=== PATIENT | male | born 1955 | race Caucasian/White ===

== ENCOUNTER → 2018-01-23 06:59 | Outpatient (CLI) | payer OTHER, SELFPAY ==
[2018-01-23 09:55] LABS: Alanine Aminotransferase 41 IU/L (21-72); Albumin 4.3 g/dL (3.5-5.0); Albumin Globulin Ratio 1.4 (1.0-2.8); Alkaline Phosphatase 61 U/L (38-126); Aspartate Aminotransferase 30 IU/L (17-59); BUN Creatinine Ratio 16.4 (6-22); Bilirubin Total 0.7 mg/dL (0.2-1.3); Blood Urea Nitrogen 18 mg/dL (9-20); Calcium 9.2 mg/dL (8.4-10.2); Carbon Dioxide 29 mmol/L (22-32); Chloride 102 mmol/L (98-107); Cholesterol 185 mg/dL (140-199); Estimated Glomerular Filt Rate > 60.0 mL/min (>60); Globulin 3.1 g/dL (1.7-4.1); Glucose 82 mg/dL (80-110); HDL Cholesterol 74 mg/dL (40-60); HEMOLYSIS < 15 (0-50); LDL Cholesterol Calculated 97 mg/dL (<100); Potassium 4.4 mmol/L (3.4-5.1); Sodium 141 mmol/L (137-145); Total Protein 7.4 g/dL (6.3-8.2); Triglycerides 70 mg/dL (35-150)
[2018-01-23 10:30] LABS: Thyroid Stimulating Hormone 1.77 uIU/mL (0.47-4.68)
== END ==
PROVIDERS: Family Provider Internal Medicine; PCP Internal Medicine; Visit Provider Internal Medicine Cardiovascular Disease
DX: E78.5 Hyperlipidemia, unspecified (principal); A60.9 Anogenital herpesviral infection, unspecified; E78.2 Mixed hyperlipidemia
CPT/HCPCS: 36415; 80053; 80061; 84443

== ENCOUNTER → 2019-03-12 07:27 | Outpatient (CLI) | payer OTHER, SELFPAY ==
[2019-03-12 09:00] LABS: Alanine Aminotransferase 30 IU/L (21-72); Albumin 4.5 g/dL (3.5-5.0); Albumin Globulin Ratio 1.7 (1.0-2.8); Alkaline Phosphatase 52 U/L (38-126); Aspartate Aminotransferase 31 IU/L (17-59); Bilirubin Total 0.8 mg/dL (0.2-1.3); Blood Urea Nitrogen 18 mg/dL (9-20); Calcium 9.5 mg/dL (8.4-10.2); Carbon Dioxide 29 mmol/L (22-32); Chloride 104 mmol/L (98-107); Cholesterol 183 mg/dL (140-199); Estimated Glomerular Filt Rate > 60.0 mL/min (>60); Globulin 2.7 g/dL (1.7-4.1); Glucose 88 mg/dL (80-110); HDL Cholesterol 77 mg/dL (40-60); HEMOLYSIS < 15 (0-50); LDL Cholesterol Calculated 92 mg/dL (<100); Potassium 4.8 mmol/L (3.4-5.1); Sodium 139 mmol/L (137-145); Total Protein 7.2 g/dL (6.3-8.2); Triglycerides 72 mg/dL (35-150)
== END ==
PROVIDERS: Family Provider Internal Medicine; PCP Internal Medicine; Visit Provider Internal Medicine Cardiovascular Disease
DX: E78.5 Hyperlipidemia, unspecified (principal); I10 Essential (primary) hypertension
CPT/HCPCS: 36415; 80053; 80061

== ENCOUNTER → 2020-05-27 07:18 | Outpatient (CLI) | payer OTHER, SELFPAY ==
[2020-05-27 09:07] LABS: Add Manual Diff / Slide Review NO; Basophils Absolute Auto 100 /uL (0-100); Basophils Percent Auto 2.1 % (0-2); Eosinophils Absolute Auto 300 /uL (0-450); Eosinophils Percent Auto 6.8 % (2-4); Hematocrit 41.8 % (41-53); Hemoglobin 14.4 g/dL (13.5-17.5); Lymphocytes Absolute Auto 1200 /uL (1100-4500); Lymphocytes Percent Auto 27.9 % (25-40); Mean Corpuscular HGB Conc 34.5 % (30-36); Mean Corpuscular Hemoglobin 31.3 PG (26-34); Mean Corpuscular Volume 90.8 fL (80-100); Monocytes Absolute Auto 500 /uL (0-900); Monocytes Percent Auto 10.8 % (3-14); Neutrophils Absolute Auto 2200 /uL (1500-7000); Neutrophils Percent Auto 52.4 % (50-75); Platelet Count 201 X10^3/uL (150-400); Red Blood Cell Count 4.61 X10^6/uL (4.5-5.9); Red Cell Distribution Width 13.3 % (11.6-14.8); White Blood Cell Count 4.2 X10^3/uL (4.5-11.0)
[2020-05-27 09:24] LABS: Alanine Aminotransferase 30 IU/L (<50); Albumin 4.7 g/dL (3.5-5.0); Albumin Globulin Ratio 1.6 (1.0-2.8); Alkaline Phosphatase 51 U/L (38-126); Aspartate Aminotransferase 37 IU/L (17-59); BUN Creatinine Ratio 17.8 (6-22); Bilirubin Total 0.6 mg/dL (0.2-1.3); Blood Urea Nitrogen 19 mg/dL (9-20); Calcium 9.3 mg/dL (8.4-10.2); Carbon Dioxide 29 mmol/L (22-32); Chloride 104 mmol/L (98-107); Cholesterol 175 mg/dL (140-199); Estimated Glomerular Filt Rate > 60.0 mL/min (>60); Globulin 2.9 g/dL (1.7-4.1); Glucose 89 mg/dL (80-110); HDL Cholesterol 77 mg/dL (40-60); HEMOLYSIS < 15 (0-50); LDL Cholesterol Calculated 81 mg/dL (<100); Potassium 4.2 mmol/L (3.4-5.1); Sodium 139 mmol/L (137-145); Total Protein 7.6 g/dL (6.3-8.2); Triglycerides 83 mg/dL (35-150)
[2020-05-27 09:46] LABS: Prostate Specific Antigen Scrn 1.28 ng/mL (0.1-4.0)
== END ==
PROVIDERS: Family Provider Internal Medicine; PCP Family Medicine; Referring Provider Family Medicine; Visit Provider Family Medicine
DX: E78.5 Hyperlipidemia, unspecified (principal); I10 Essential (primary) hypertension; I25.10 Atherosclerotic heart disease of native coronary artery without angina pectoris; Z12.5 Encounter for screening for malignant neoplasm of prostate
CPT/HCPCS: 36415; 80053; 80061; 85025; G0103

== ENCOUNTER → 2020-11-06 08:28 | Outpatient (CLI) | payer OTHER, SELFPAY ==
[2020-11-06] MEDS: COVID-19 VACC #1, MRNA(MOD) 100 MCG/0.5 ML VIAL IM (08:35)
== END ==
PROVIDERS: Family Provider Internal Medicine; PCP Family Medicine; Visit Provider Internal Medicine
DX: Z23 Encounter for immunization (principal)
CPT/HCPCS: 0011A; 91301

== ENCOUNTER → 2020-12-04 08:10 | Outpatient (CLI) | payer OTHER, SELFPAY ==
[2020-12-04] MEDS: COVID-19 VACC #2, MRNA(MOD) 100 MCG/0.5 ML VIAL IM (08:22)
== END ==
PROVIDERS: Family Provider Internal Medicine; PCP Family Medicine; Visit Provider Internal Medicine
DX: Z23 Encounter for immunization (principal)
CPT/HCPCS: 0012A; 91301

== ENCOUNTER → 2021-08-25 07:17 | Outpatient (CLI) | payer MEDICARE, SELFPAY ==
[2021-08-25 09:09] LABS: Add Manual Diff / Slide Review NO; Basophils Absolute Auto 100 /uL (0-100); Basophils Percent Auto 2.1 % (0-2); Eosinophils Absolute Auto 200 /uL (0-450); Eosinophils Percent Auto 4.7 % (2-4); Hemoglobin 14.6 g/dL (13.5-17.5); Lymphocytes Absolute Auto 1300 /uL (1100-4500); Lymphocytes Percent Auto 32.7 % (25-40); Mean Corpuscular Hemoglobin 31.3 PG (26-34); Monocytes Absolute Auto 500 /uL (0-900); Monocytes Percent Auto 11.8 % (3-14); Neutrophils Absolute Auto 2000 /uL (1500-7000); Neutrophils Percent Auto 48.7 % (50-75); Platelet Count 209 X10^3/uL (150-400); Red Blood Cell Count 4.68 X10^6/uL (4.5-5.9); Red Cell Distribution Width 13.7 % (11.6-14.8)
[2021-08-25 09:32] LABS: Alanine Aminotransferase 28 IU/L (<50); Albumin 4.5 g/dL (3.5-5.0); Albumin Globulin Ratio 1.8 (1.0-2.8); Alkaline Phosphatase 47 U/L (38-126); Aspartate Aminotransferase 33 IU/L (17-59); Blood Urea Nitrogen 17 mg/dL (9-20); Calcium 9.3 mg/dL (8.4-10.2); Carbon Dioxide 27 mmol/L (22-32); Chloride 106 mmol/L (98-107); Cholesterol 170 mg/dL (140-199); Estimated Glomerular Filt Rate > 60.0 mL/min (>60); Globulin 2.5 g/dL (1.7-4.1); Glucose 93 mg/dL (80-110); HDL Cholesterol 88 mg/dL (40-60); HEMOLYSIS < 15 (0-50); LDL Cholesterol Calculated 71 mg/dL (<100); Potassium 4.5 mmol/L (3.4-5.1); Sodium 139 mmol/L (137-145); Triglycerides 54 mg/dL (35-150)
[2021-08-25 10:00] LABS: Prostate Specific Antigen Scrn 1.38 ng/mL (0.1-4.0)
== END ==
PROVIDERS: Family Provider Internal Medicine; PCP Family Medicine; Referring Provider Internal Medicine Cardiovascular Disease; Visit Provider Internal Medicine Cardiovascular Disease
DX: E78.2 Mixed hyperlipidemia (principal); E78.5 Hyperlipidemia, unspecified; Z12.5 Encounter for screening for malignant neoplasm of prostate; I10 Essential (primary) hypertension; D70.9 Neutropenia, unspecified
CPT/HCPCS: 36415; 80053; 80061; 85025; G0103

== ENCOUNTER → 2022-07-23 13:24 | Outpatient (CLI) | payer MEDICARE, SELFPAY ==
--- NOTE | 2022-07-23 13:25 | DI.RAD.S_ITS ---
PROCEDURE: XR LUMBAR SPINE MIN 4V INDICATIONS: BACK PAIN TECHNIQUE: 5 views of the lumbar spine were acquired, including bilateral oblique views. COMPARISON: None. FINDINGS: Bones: 5 nonrib-bearing vertebrae are present. There is normal bony alignment it except for slight anterolisthesis of L4 on L5 associated with moderate degenerative disc disease at this level and moderately severe facet osteoarthritis bilaterally. At L5-S1 there is no significant subluxation but there is severe degenerative disc height reduction and moderately severe bilateral facet osteoarthritis.. No vertebral body compression fractures. No suspicious bony lesions. Soft tissues: Overlying bowel gas pattern is normal. No suspicious soft tissue calcifications. Oblique images: No pars defects. IMPRESSION: Moderate degenerative disc disease L4-L5 with associated mild anterolisthesis of L4 on L5, secondary to this degenerative change and also moderately severe bilateral facet osteoarthritis. At the L5-S1 level there is near severe degenerative changes with significant disc height reduction and moderately severe facet osteoarthritis. Spinal and foraminal stenosis almost certainly would be present at this level and may be present at L4-L5. No compression fracture found. Dictated by: Pj Paul M.D. on 07/23/2022 at 13:46 Approved by: Pj Paul M.D. on 07/23/2022 at 13:49
== END ==
PROVIDERS: Family Provider Internal Medicine; PCP Family Medicine; Referring Provider Physical Medicine & Rehabilitation; Visit Provider Physical Medicine & Rehabilitation
DX: M51.36 Other intervertebral disc degeneration, lumbar region (principal); M43.16 Spondylolisthesis, lumbar region; M47.816 Spondylosis without myelopathy or radiculopathy, lumbar region; M47.817 Spondylosis without myelopathy or radiculopathy, lumbosacral region; M48.07 Spinal stenosis, lumbosacral region; M54.9 Dorsalgia, unspecified; G89.29 Other chronic pain
CPT/HCPCS: 72110

== ENCOUNTER → 2022-08-06 11:48 | Outpatient (CLI) | payer MEDICARE, SELFPAY ==
--- NOTE | 2022-08-06 11:49 | DI.MRI.S_ITS ---
PROCEDURE: MR LUMBAR SPINE WO CON INDICATIONS: Lumbar facet arthropathy TECHNIQUE: Noncontrast sagittal T1 spin echo and T2 fast echo, sagittal STIR, and T2 fast spin echo through the lumbar spine. In cases with scoliosis, additional coronal T2 fast spin echo may be performed. COMPARISON: [facility], CR, XR LUMBAR SPINE MIN 4V, 07/23/2022, 13:26. FINDINGS: Image quality: Excellent. Alignment and Curvature: There is minimal 2 mm grade 1 anterolisthesis of L5 on S1. Mild grade 1 anterolisthesis of L4 on L5 measures 3 mm. No spondylolysis. Bone Marrow: Mild Modic type 1 degenerative endplate changes are seen adjacent to the L5-S1 disc space. Modic type 2 changes are seen at the L1-2 disc space. Marrow is of normal overall signal. No acute vertebral body compression fractures. Spinal Cord: Conus medullaris terminates at the L1-2 disc space level. Visualized cord demonstrates normal signal and size. Paraspinous Soft Tissues: No paravertebral masses. T12-L1: No significant disc bulging, spinal canal stenosis, or neural foraminal narrowing. L1-L2: Disc desiccation and mild loss of disc space height with circumferential disc bulging. Findings result in mild bilateral neural foraminal narrowing without significant spinal canal stenosis. L2-L3: Disc desiccation and circumferential disc bulging with superimposed small right paracentral disc extrusion measuring approximately 8 x 8 x 4 mm. There is minimal extension along the posterior L2 vertebra. Findings result in partial effacement of the right lateral recess with disc material abutting the traversing right L3 nerve root. There is mild narrowing of the spinal canal and mild bilateral neural foraminal narrowing. L3-L4: Disc desiccation and mild circumferential disc bulging as well as mild bilateral facet hypertrophy. Findings result in mild narrowing of the spinal canal and [id number] bilateral neural foraminal narrowing. L4-L5: Grade 1 anterolisthesis of L4 on L5 with uncovering of the disc it and superimposed circumferential disc bulging as well as moderate bilateral facet hypertrophy and buckling of the ligamentum flavum. Findings result in moderate to severe narrowing of the central spinal canal and [id number] bilateral neural foraminal narrowing. L5-S1: Disc desiccation and loss of disc space height with grade 1 retrolisthesis of L5 on S1 as well as mild bilateral facet hypertrophy. Findings result in moderate to severe right and moderate left neural foraminal narrowing without significant spinal canal stenosis. IMPRESSION: 1. At L4-5, degenerative changes and grade 1 anterolisthesis result in moderate to high-grade narrowing of the spinal canal and mild to moderate neural foraminal narrowing. 2. At L5-S1, degenerative changes and grade 1 retrolisthesis result in moderate to severe right neural foraminal narrowing and moderate left neural foraminal narrowing without significant spinal canal stenosis. 3. At L2-3, a small right paracentral disc extrusion abuts the traversing right L3 nerve root in the right lateral recess without definite impingement. No high-grade spinal canal stenosis or neural foraminal narrowing at this level. 4. Additional mild and moderate degenerative disc disease and facet hypertrophy as described in detail in the body of the report. Approved by: José Gill M.D. on 08/06/2022 at 13:48
== END ==
PROVIDERS: Family Provider Internal Medicine; PCP Family Medicine; Referring Provider Physical Medicine & Rehabilitation; Visit Provider Physical Medicine & Rehabilitation
DX: M51.16 Intervertebral disc disorders with radiculopathy, lumbar region; M47.26 Other spondylosis with radiculopathy, lumbar region; M47.27 Other spondylosis with radiculopathy, lumbosacral region; M43.16 Spondylolisthesis, lumbar region; M43.17 Spondylolisthesis, lumbosacral region; M53.3 Sacrococcygeal disorders, not elsewhere classified
CPT/HCPCS: 72148

== ENCOUNTER 2022-08-31 08:08 | Outpatient (CLI) | payer MEDICARE, SELFPAY ==
[2022-08-31] VITALS (9 sets, daily range): BP systolic 127–143; BP diastolic 80–92; PULSE 60–71; RESP 12–18; TEMP 36.2; O2SAT 99–100
--- NOTE | 2022-08-31 08:08 | DI.RAD.S_ITS ---
PROCEDURE: PAIN L/SI FACET INJ/BLK 1STL INDICATIONS: SPONDYLOSIS COMPARISON: [facility], CR, XR LUMBAR SPINE MIN 4V, 07/23/2022, 13:26. [facility], MR, MR LUMBAR SPINE WO CON, 08/06/2022, 12:03. FINDINGS: Fluoroscopic spot filming was performed to verify placement of spinal needles on the left at the L4-L5 and L5-S1 levels, as labeled on the films. Appropriate location of the needle tips was confirmed by injection of iodinated contrast. IMPRESSION: Intraprocedural examination demonstrating appropriate positions of the needles. Dictated by: Rene Taylor M.D. on 08/31/2022 at 10:49 Approved by: Rene Taylor M.D. on 08/31/2022 at 10:50
[2022-08-31] MEDS: MIDAZOLAM 2 MG/2 ML VIAL IV (09:33)
[2022-08-31] MEDS: IOPAMIDOL 15 ML VIAL 3 ML INJ (09:38)
[2022-08-31] MEDS: BETAMETHASONE 30 MG/5 ML MDV 12 MG INJ (09:38)
[2022-08-31] MEDS: BUPIVACAINE 0.5% MDV 2 ML INJ (09:39)
--- NOTE | 2022-08-31 09:49 | P.PCN_ITS ---
Date/Time/Diagnoses Date of procedure: 08/31/22 Time of procedure: 09:49 Pre-procedure diagnosis: 1. FACET ARTHROPATHY, 2. AXIAL LBP, 3. MULTILEVEL DDD Post-procedure diagnosis: same Procedure Notes Procedure: 1. FLUOROSCOPICALLY GUIDED CONTRAST CONTROLLED FACET JOINT INJECTIONS LEFT L4/5, L5/S1 Indications: Nura is referred by Dr. Francis for treatment of Axial LBP Physician: Luis Bradley Total Fluoroscopy time (seconds): 7 Total sedation minutes: 9 Complications: none Procedure in detail & Post-procedure care: FINDINGS Multilevel Facet Arthropathy with Clinically significant axial LBP DESCRIPTION OF PROCEDURE Fluoroscopically guided, contrast-controlled left L4/5, L5/S1 facet joint injections. Following review of allergy and review of potential side effects and complications, including, but not necessarily limited to, infection, allergic reaction, local tissue breakdown, stroke, temporary or permanent nerve injury, paralysis, and possible , the patient indicated that the patient understood and agreed to proceed. An informed consent document was signed by the patient, witnessed by a nurse, and placed in the patient's chart. Additionally, other treatment options including medications, modalities, and physical therapy were reviewed with the patient. After review of previous anaesthesic history and IV conscious sedation the patient was deemed safe to proceed with today?s procedure with IV conscious sedation as ASA class II designation. Safety time-out was performed to confirm patient ID, procedure to be performed and site of procedure. IV sedation was accomplished with a combination of 2mg of Versed was administered by the RN after DO order, titrated to patient comfort during the course of the procedure while the patient remained responsive to all verbal commands. In the prone position, following sterile prep and drape of the lumbar region, the posterior aspect of the left L4/5, L5/S1 facet joints were identified fluoroscopically. The skin was anesthetized via a 25-gauge 1.5-inch needle with 1% lidocaine solution into the corresponding facet joints. At this point, a 22- gauge 3.5-inch spinal needle was atraumatically introduced and advanced under fluoroscopic guidance into the corresponding facet joints. Following negative aspiration, injections of approximately 0.2-cc of Isovue 200 confirmed interarticular placement without vascular uptake. Radiological data, including multiple fluoroscopic views of the lumbosacral spine, reveal a spinal needle at the left L4/5, L5/S1 facet joints. Subsequent views show flow of contrast material both superiorly and inferiorly within the joint space without vascular or intrathecal uptake. At this point, a total of 0.5 cc including a mixture of 0.25cc Marcaine and 0.25cc betamethasone was injected without complication into each of the corresponding facet joints. The procedure tolerated the procedure well without signs or symptoms of complications prior to transfer to the recovery area continued monitoring without incident. The patient was then transferred to the recovery area where they were observed for an appropriate period of time after the injection. The patient reported a VAS score of 7 prior to the procedure and a post-procedure VAS of 0. POST OP INSTRUCTIONS The patient was provided a Pain Log to continue to record their response to the target-specific procedure prior to follow-up visit with their referring physician. Additionally, specific post-injection care instructions and a contact number to our office were provided if concerns arise regarding possible complications associated with the procedure are suspected.
== END 2022-08-31 10:07 | disposition home or self-care (01) ==
PROVIDERS: Family Provider Internal Medicine; PCP Family Medicine; Referring Provider Physical Medicine & Rehabilitation; Visit Provider Physical Medicine & Rehabilitation
DX: M47.816 Spondylosis without myelopathy or radiculopathy, lumbar region (principal); M47.817 Spondylosis without myelopathy or radiculopathy, lumbosacral region; M51.36 Other intervertebral disc degeneration, lumbar region; M51.37 Other intervertebral disc degeneration, lumbosacral region
CPT/HCPCS: 64493; 64494; J0702; J2250

== ENCOUNTER → 2022-09-07 07:16 | Outpatient (CLI) | payer MEDICARE, SELFPAY ==
[2022-09-07 07:58] LABS: Alanine Aminotransferase 35 IU/L (<50); Albumin 4.2 g/dL (3.5-5.0); Albumin Globulin Ratio 1.6 (1.0-2.8); Alkaline Phosphatase 45 U/L (38-126); Aspartate Aminotransferase 28 IU/L (17-59); BUN Creatinine Ratio 13.9 (6-22); Blood Urea Nitrogen 16 mg/dL (9-20); Calcium 8.8 mg/dL (8.4-10.2); Carbon Dioxide 29 mmol/L (22-32); Chloride 103 mmol/L (98-107); Cholesterol 171 mg/dL (140-199); Estimated Glomerular Filt Rate > 60 mL/min (>60); Globulin 2.6 g/dL (1.7-4.1); Glucose 88 mg/dL (80-110); HDL Cholesterol 76 mg/dL (40-60); HEMOLYSIS < 15 (0-50); LDL Cholesterol Calculated 82 mg/dL (<100); Potassium 4.4 mmol/L (3.4-5.1); Sodium 138 mmol/L (137-145); Total Protein 6.8 g/dL (6.3-8.2); Triglycerides 66 mg/dL (35-150)
== END ==
PROVIDERS: Family Provider Internal Medicine; PCP Family Medicine; Referring Provider Family Medicine; Visit Provider Family Medicine
DX: I10 Essential (primary) hypertension (principal); E78.5 Hyperlipidemia, unspecified
CPT/HCPCS: 36415; 80053; 80061

== ENCOUNTER 2022-12-14 13:26 | Outpatient (CLI) | payer MEDICARE, SELFPAY ==
[2022-12-14] VITALS (8 sets, daily range): BP systolic 114–140; BP diastolic 76–83; PULSE 68–78; RESP 12–20; TEMP 36.6; O2SAT 98–100
--- NOTE | 2022-12-14 13:28 | DI.RAD.S_ITS ---
PROCEDURE: PAIN L/SI FACET INJ/BLK 1STL INDICATIONS: SPONDYLOSIS COMPARISON: [facility], , PAIN L/SI FACET INJ/BLK 1STL, 08/31/2022, 10:37. FINDINGS: Fluoroscopic spot filming was performed to verify placement of spinal needles at the left L4, L5 and S1 peripedicle/periforaminal level(s), as labeled on the films. Appropriate location(s) of the needle tip(s) was confirmed by injection of iodinated contrast. IMPRESSION: Access needles adjacent to the left L4, L5 and S1 pedicles for medial branch block. Dictated by: Jayshree Hilton MD, PhD on 12/14/2022 at 15:48 Approved by: Jayshree Hilton MD, PhD on 12/14/2022 at 15:49
[2022-12-14] MEDS: MIDAZOLAM 2 MG/2 ML VIAL IV (14:25)
[2022-12-14] MEDS: BUPIVACAINE 0.5% (PF) 10 ML VIAL 2 ML INJ (14:28)
[2022-12-14] MEDS: IOPAMIDOL 15 ML VIAL 3 ML INJ (14:28)
[2022-12-14] MEDS: LIDOCAINE 1% 20 ML 10 ML INJ (14:29)
--- NOTE | 2022-12-14 14:35 | P.PCN_ITS ---
Date/Time/Diagnoses Date of procedure: 12/14/22 Time of procedure: 14:35 Pre-procedure diagnosis: 1. FACET ARTHROPATHY Post-procedure diagnosis: same Procedure Notes Procedure: 1. Left L4, L5 and S1 MB BLOCKS LA Indications: Nura is referred by Dr. Francis for treatment of Left Axial LBP. Physician: Luis Bradley Total Fluoroscopy time (seconds): 6 Total sedation minutes: 7 Complications: none Procedure in detail & Post-procedure care: DESCRIPTION OF PROCEDURE Fluoroscopically guided, contrast-controlled left L4, L5 and S1 medial branch blocks with 0.5cc of 0.5% Marcaine. Following review of allergy and review of potential side effects and complications, including, but not necessarily limited to, infection, allergic reaction, local tissue breakdown, nerve injury, paralysis, stroke and possible d eath, the patient indicated that the patient understood and agreed to proceed. An informed consent document was signed by the patient, witnessed by a nurse, and placed in the patient's chart. After review of previous anaesthesic history and IV conscious sedation the patient was deemed safe to proceed with today?s procedure with IV conscious sedation as ASA class II designation. Safety time-out was performed to confirm patient ID, procedure to be performed and site of procedure. IV sedation was accomplished with a combination of 2mg of Versed was administered by the RN after DO order, titrated to patient comfort during the course of the procedure while the patient remained responsive to all verbal commands. In the prone position, following sterile prep and drape of the lumbar region, the left L4, L5 and S1 anatomical location of the medial branch of the dorsal ramus was identified fluoroscopically. Subsequently an anesthetic skin wheal using 1% lidocaine solution was initiated at each of the anatomical spots. Subsequently then a 22-gauge 3.5-inch spinal needle was atraumatically introduced and advanced under fluoroscopic guidance at each of the corresponding sites at the left L4, L5 and S1 MB. After negative aspiration, 0.2cc of Isovue 200 was injected, confirming placement without vascular or intrathecal uptake. Subsequently then 0.5cc of 0.5% Marcaine solution was injected at each of the corresponding sites at the left L4, L5 and S1 medial branch locations. The patient tolerated the procedure well without signs or symptoms of complications. The patient tolerated the procedure well without signs or symptoms of complications prior to transfer to the recovery area continued monitoring without incident. Post-procedure, the patient was monitored initiating provocative activities to measure the amount of relief from block of the facetogenic pain. The patient reported a VAS of 7 prior to the procedure and a post-procedure VAS of 1. It has been a pleasure to assist in the diagnostic and therapeutic care of your patient. POST OP INSTRUCTIONS The patient was provided with a Pain Log to complete over the next several hours and subsequent days prior to the patient's follow up with the ordering physician. If the patient has bindery technician relief to the solution applied, then they may be a candidate for medial branch rhizotomy. The patient is aware, was provided, once again, with a Pain Log and will follow up with the referring physician for review and clinical correlation.
== END 2022-12-14 15:02 | disposition home or self-care (01) ==
PROVIDERS: Family Provider Internal Medicine; PCP Family Medicine; Referring Provider Physical Medicine & Rehabilitation; Visit Provider Physical Medicine & Rehabilitation
DX: M47.816 Spondylosis without myelopathy or radiculopathy, lumbar region (principal); M47.817 Spondylosis without myelopathy or radiculopathy, lumbosacral region
CPT/HCPCS: 64493; 64494; 99152; J2250

== ENCOUNTER 2023-01-25 10:41 | Outpatient (CLI) | payer MEDICARE, SELFPAY ==
[2023-01-25] VITALS (9 sets, daily range): BP systolic 127–136; BP diastolic 70–84; PULSE 61–73; RESP 12–20; TEMP 36.4; O2SAT 97–100
--- NOTE | 2023-01-25 10:42 | DI.RAD.S_ITS ---
PROCEDURE: PAIN L/S MED/LAT N RFA INDICATIONS: SPONDYLOSIS COMPARISON: [facility], XA, PAIN L/SI FACET INJ/BLK 1STL, 12/14/2022, 14:27. [facility], XA, PAIN L/SI FACET INJ/BLK 1STL, 08/31/2022, 10:37. FINDINGS: Fluoroscopic spot filming was performed to verify placement of spinal needles on the left at the L4, L5, and S1 levels, as labeled on the films. IMPRESSION: Images during rhizotomy within normal limits. Dictated by: Rene Taylor M.D. on 01/25/2023 at 15:48 Approved by: Rene Taylor M.D. on 01/25/2023 at 15:49
[2023-01-25] MEDS: MIDAZOLAM 2 MG/2 ML VIAL IV (12:10)
[2023-01-25] MEDS: LIDOCAINE 1% 20 ML 5 ML INJ (12:22)
[2023-01-25] MEDS: BUPIVACAINE 0.5% (PF) 10 ML VIAL 5 ML INJ (12:22)
--- NOTE | 2023-01-25 12:37 | P.PCN_ITS ---
Date/Time/Diagnoses Date of procedure: 01/25/23 Time of procedure: 12:37 Pre-procedure diagnosis: 1. RECALCITRANT FACET ARTHROPATHY Post-procedure diagnosis: same Procedure Notes Procedure: 1. LEFT L4 AND L5 MEDIAL BRANCH RADIOFREQUENCY NEUROTOMY AND LEFT S1 DORSAL RAMUS RADIOFREQUENCY NEUROTOMY, Indications: Nura is referred by Dr. Francis for treatment of facet arthropathy. Physician: Luis Bradley Total Fluoroscopy time (seconds): 13 Total sedation minutes: 23 Complications: none Procedure in detail & Post-procedure care: DESCRIPTION OF PROCEDURE Left L4 and L5 medial branch radiofrequency neurotomy and left S1 dorsal ramus branch radiofrequency neurotomy under fluoroscopy with conscious sedation. The patient is well known to this clinic having undergone previous facet injections with good but temporary relief. The patient has experienced appropriate, concordant relief with previous facet and median branch blocks but the patient's pain has been recalcitrant to further conservative measures. Therefore, based upon the patient's relief and persistent symptoms, the patient is considered an appropriate candidate for facet rhizotomy. All of the patient's questions regarding the risks versus benefits of the procedure, including, but not limited to, bleeding, infection, temporary as well as lasting nerve injury, paralysis, stroke, and , as well treatment alternatives were answered to satisfaction. After obtaining informed consent, denial of pertinent drug allergies, as well as being made aware of the potential risks of bleeding, infection, spinal cord trauma, paralysis, temporary and permanent nerve damage, seizure, stroke, and possible , the patient was brought to the fluoroscopy suite and positioned prone on the fluoroscopy table. The lumbar region was prepped with Betadine and covered with a fenestrated drape in the usual sterile fashion. Appropriate monitors applied including pulse oximeter, pulse, and blood pressure for regular monitoring throughout the procedure. IV sedation was accomplished with a combination of 2mg of Versed titrated to patient comfort during the course of the procedure while the patient remained responsive to all verbal commands. After local infiltration using 1% lidocaine, under fluoroscopic guidance, a 10- cm RF insulated needle with a 10-mm active tip was positioned parallel to the junction of the left sacral ala and the superior articulating process where the S1 dorsal ramus resides. Needle placement was confirmed with sensory stimulation at 50 Hz, with motor stimulation of .5v on the left which produced local stimulation without radicular component. The stimulation was then increased to 2v with, once again, only local multifidus stimulation without radicular component. This was then followed by two discreet lesions performed at 80 degrees Celsius for 90 seconds each. The needle was then removed and the identical procedure was performed along the length of the left L5 medial branch with motor stimulation at .7v on the left. The identical procedure was once again performed along the length of the left L4 medial branch with motor stimulation of .5v on the left. The patient tolerated the procedure well without signs or symptoms of complications prior to transfer to the recovery area continued monitoring without incident. The patient was then transferred to the recovery area where they were observed for an appropriate period of time after the injection. The patient was then transferred to the recovery area where they were observed for an appropriate period of time after the injection. The patient reported a VAS score of 9 prior to the procedure and a post- procedure VAS of 0. POST OP INSTRUCTIONS The patient was provided a Pain Log to continue to record the patient's response to the target-specific procedure prior to the patient's follow-up visit with the referring physician. Additionally, specific post-injection care instructions and a contact number to our office were provided if concerns arise regarding possible complications associated with the procedure are suspected.
== END 2023-01-25 12:46 | disposition home or self-care (01) ==
LOC: RAD 10:42
PROVIDERS: Family Provider Internal Medicine; PCP Family Medicine; Referring Provider Physical Medicine & Rehabilitation; Visit Provider Physical Medicine & Rehabilitation
DX: M47.816 Spondylosis without myelopathy or radiculopathy, lumbar region (principal); M47.817 Spondylosis without myelopathy or radiculopathy, lumbosacral region
CPT/HCPCS: 64635; 64636; 99152; 99153; J2250

== ENCOUNTER → 2023-04-24 09:45 | Outpatient (CLI) | payer MEDICARE, SELFPAY ==
--- NOTE | 2023-04-24 09:46 | DI.RAD.S_ITS ---
PROCEDURE: XR ELBOW LT MIN 3V INDICATIONS: left elbow pain TECHNIQUE: 3 views of the elbow were acquired. COMPARISON: None. FINDINGS: Bones: Bony step-off involves the lateral aspect of the radial. Small well corticated ossified structure adjacent to the lateral epicondyle of the distal humerus. No suspicious bony lesions. Soft tissues: Small elbow joint effusion. No suspicious soft tissue calcifications. IMPRESSION: 1. Findings suggestive of a radial head fracture with small elbow joint effusion. Dictated by: Lacey Pan M.D. on 04/24/2023 at 10:16 Approved by: Lacey Pan M.D. on 04/24/2023 at 10:17
== END ==
PROVIDERS: Family Provider Internal Medicine; PCP Family Medicine; Referring Provider Physician Assistant; Visit Provider Physician Assistant
DX: M25.522 Pain in left elbow (principal); M25.422 Effusion, left elbow
CPT/HCPCS: 73080

== ENCOUNTER → 2023-09-03 07:55 | Outpatient (CLI) | payer MEDICARE, SELFPAY ==
[2023-09-03 09:11] LABS: Aspartate Aminotransferase 29 IU/L (17-59); BUN Creatinine Ratio 16.2 (6-22); Blood Urea Nitrogen 18 mg/dL (9-20); Calcium 9.7 mg/dL (8.4-10.2); Carbon Dioxide 28 mmol/L (22-32); Chloride 102 mmol/L (98-107); Cholesterol 176 mg/dL (140-199); Estimated Glomerular Filt Rate > 60 mL/min (>60); Glucose 92 mg/dL (80-110); HDL Cholesterol 78 mg/dL (40-60); HEMOLYSIS < 15 (0-50); LDL Cholesterol Calculated 86 mg/dL (<100); Potassium 4.6 mmol/L (3.4-5.1); Sodium 136 mmol/L (137-145); Triglycerides 62 mg/dL (35-150)
== END ==
PROVIDERS: Family Provider Internal Medicine; PCP Internal Medicine; Referring Provider Internal Medicine; Visit Provider Internal Medicine
DX: E78.2 Mixed hyperlipidemia (principal); N40.1 Benign prostatic hyperplasia with lower urinary tract symptoms; I25.10 Atherosclerotic heart disease of native coronary artery without angina pectoris; N13.8 Other obstructive and reflux uropathy
CPT/HCPCS: 36415; 80048; 80061; 84153; 84450

== ENCOUNTER 2023-11-03 13:13 | Day surgery (SDC) | payer MEDICARE, SELFPAY ==
[2023-11-03 13:29] VITALS: BP 158/92; PULSE 75; RESP 16; TEMP 36.3; O2SAT 100
--- NOTE | 2023-11-03 14:26 | PM.HP.1 ---
History of Present Illness History of Present Illness Date Patient Seen: 11/03/23 Time Patient Seen: 14:26 Chief complaint: Colonoscopy Narrative: Nura is a 68 year old man with a history of polyps as well as a prolapsing internal hemorrhoid. See office note from August for more details. [facility] Medical History Rectal pain History of colonic polyps BPH w urinary obs/LUTS HSV-2 (herpes simplex virus 2) infection Mixed hyperlipidemia Sacral dysfunction Facet arthropathy, lumbar Lumbar radiculopathy Raynauds disease CAD (coronary artery disease) Anxiety and depression Essential hypertension Chronic back pain Surgical History Status post wisdom tooth extraction Status post tonsillectomy Status post nasal surgery Status post laminectomy Family History Father CAD (coronary artery disease) Mother Hypertension Social History marital status: details: , grown children, retired personal fitness trainer number of children: 3 household members: spouse education level: high school occupational status: other (retired from the [employer]) Smoking Status: Never smoker alcohol intake: current substance use type: does not use Meds Home Medications and Allergies Home Medications Medication Instructions Recorded Confirmed Type alprazolam 0.25 mg tablet 0.25 mg PO BID PRN anxiety #20 tabs 05/17/18 11/03/23 Rx atorvastatin 20 mg tablet 20 mg PO BEDTIME #90 tabs 07/26/23 11/03/23 Rx celecoxib 200 mg capsule (Celebrex) 200 mg PO DAILY PRN pain #90 caps 07/26/23 11/03/23 Rx losartan 50 mg tablet 50 mg PO DAILY #90 tabs 07/26/23 11/03/23 Rx valacyclovir 500 mg tablet 500 mg PO TID PRN herpes #30 tabs 07/26/23 08/17/23 Rx peg 3350-electrolytes 236 240 ml PO Q10M #4,000 mL 10/03/23 Rx gram-22.74 gram-6.74 gram-5.86 gram solution (Golytely) Allergies Allergy/AdvReac Type Severity Reaction Status Date / Time No Known Drug Allergies Allergy Verified 11/03/23 13:26 Exam Vital Signs (past 8 hours): - 11/03/23 13:29 Temperature 97.4 F L Pulse Rate 75 Respiratory Rate 16 Blood Pressure 158/92 H Pulse Oximetry 100 Oxygen Delivery Method Room Air Oxygen Delivery Method Room Air Const General: No acute distress Resp Effort & Inspection: normal respiratory effort Assessment & Plan Assessment and plan (1) History of colonic polyps: Status: Acute (2) Internal hemorrhoid: Status: Acute Plan We reviewed the risks and benefits of colonoscopy for a history of polyps and rubber band ligation of internal hemorrhoids and he would like to proceed.
--- NOTE | 2023-11-03 15:44 | PM.OP.COLON ---
Operative Date/Time/Diagnoses Date of procedure: 11/03/23 Time of procedure: 15:44 Pre-op diagnosis: History of colon polyps and internal hemorrhoids Post-op diagnosis: same Procedure & Clinicians Study performed: Colonoscopy Rubber-band ligation of internal hemorrhoids Same procedure as scheduled: Yes Surgeon: Meek Giles Procedure Notes Procedure in detail: Surgeon: Meek Giles MD Anesthesia: Ashley Garcia CRNA Procedure: The patient was brought to the endoscopy suite, placed in left lateral decubitus position. The patient was connected to monitoring devices. A time-out was performed. Sedation was administered. Once the patient was adequately sedated, a digital rectal exam was performed and was normal. The scope was then inserted and advanced to the cecum where the appendiceal orifice was identified and photographed. The scope was then slowly withdrawn over greater than 6 minutes. The mucosa was thoroughly inspected. No polyps or other abnormalities were noted. Sigmoid colon diverticulosis was noted. The scope was retroflexed in the rectum. Internal hemorrhoids were noted. The scope was straightened and removed. Next we performed rubber-band ligation of internal hemorrhoidal columns in the right lateral and left lateral position. The patient was awakened and brought to recovery. Scope withdrawal time: 6 minutes Sedation time: 15 minutes EBL: 5 mL Findings: Sigmoid colon diverticulosis and internal hemorrhoids Post-procedure Recommendations: Colonoscopy in 10 years Disposition: PACU
[2023-11-03 15:45] VITALS: BP 121/90; PULSE 78; RESP 18; TEMP 36.5; O2SAT 96
[2023-11-03 15:50] VITALS: BP 120/81; PULSE 77; RESP 18; O2SAT 94
[2023-11-03 15:56] VITALS: BP 129/89; PULSE 70; RESP 16; TEMP 36.6; O2SAT 95
[2023-11-03 16:01] VITALS: BP 139/89; PULSE 70; RESP 16; O2SAT 99
== END 2023-11-03 16:12 | disposition home or self-care (01) ==
PROVIDERS: Family Provider Internal Medicine; PCP Internal Medicine; Referring Provider Surgery; Visit Provider Surgery
PROC: 0DJD8ZZ Inspection of Lower Intestinal Tract, Via Natural or Artificial Opening Endoscopic (ICD-10-PCS; CPT 45378; principal; 2023-11-03 14:15)
DX: Z12.11 Encounter for screening for malignant neoplasm of colon (principal); Z86.010 Personal history of colon polyps; K64.8 Other hemorrhoids; K57.30 Diverticulosis of large intestine without perforation or abscess without bleeding
CPT/HCPCS: 46221; G0105; J2704

== ENCOUNTER → 2023-11-24 10:07 | Outpatient (CLI) | payer MEDICARE, SELFPAY ==
--- NOTE | 2023-11-24 10:08 | DI.RAD.S_ITS ---
PROCEDURE: XR LUMBAR SPINE MIN 4V INDICATIONS: BACK PAIN TECHNIQUE: 5 views of the lumbar spine were acquired, including bilateral oblique views. COMPARISON: Located [facility], , XR LUMBAR SPINE MIN 4V, 07/23/2022, 13:26. FINDINGS: Bones: 5 nonrib-bearing vertebrae are present. There is normal bony alignment. No vertebral body compression fractures. No suspicious bony lesions. Intervertebral disc space narrowing and osteophytosis is present at L5-S1. Trace anterolisthesis at L4-5 is redemonstrated. Soft tissues: Overlying bowel gas pattern is normal. No suspicious soft tissue calcifications. Oblique images: No pars defects. IMPRESSION: Mild degenerative change. Stable anterolisthesis at L4-5. No spondylolysis. Dictated by: Kaylee Conner M.D. on 11/24/2023 at 10:56 Approved by: Kaylee Conner M.D. on 11/24/2023 at 10:58
== END ==
PROVIDERS: Family Provider Internal Medicine; PCP Internal Medicine; Referring Provider Physical Medicine & Rehabilitation; Visit Provider Physical Medicine & Rehabilitation
DX: M47.816 Spondylosis without myelopathy or radiculopathy, lumbar region (principal); G89.29 Other chronic pain; M54.50 Low back pain, unspecified
CPT/HCPCS: 72110

== ENCOUNTER 2024-01-10 09:47 | Outpatient (CLI) | payer MEDICARE, SELFPAY ==
--- NOTE | 2024-01-10 10:15 | DI.RAD.S_ITS ---
PROCEDURE: PAIN L INTERLAMINAR/CAUDAL INJ INDICATIONS: para left L4/5 TL KIYA COMPARISON: None. FINDINGS: Fluoroscopic spot filming was performed to verify placement of spinal needles at the left L4-5 level(s), as labeled on the films. Appropriate location(s) of the needle tip(s) was confirmed by injection of iodinated contrast. IMPRESSION: Intra procedural examination demonstrating appropriate positions of the needles. Dictated by: Rick Brewer M.D. on 01/10/2024 at 12:32 Approved by: Rick Brewer M.D. on 01/10/2024 at 12:33
[2024-01-10 10:24] VITALS: BP 132/84; PULSE 77; RESP 16; TEMP 36.4; O2SAT 99
[2024-01-10 10:43] VITALS: BP 144/82; PULSE 68; RESP 15; O2SAT 100
[2024-01-10] MEDS: MIDAZOLAM 2 MG/2 ML VIAL 1 MG IV (10:44)
[2024-01-10 10:45] VITALS: BP 144/85; PULSE 72; RESP 15; O2SAT 100
[2024-01-10 10:50] VITALS: BP 131/85; PULSE 70; RESP 12; O2SAT 100
[2024-01-10] MEDS: DEXAMETHASONE 10 MG/ML VIAL INJ (10:51)
[2024-01-10] MEDS: BETAMETHASONE 30 MG/5 ML MDV 6 MG INJ (10:51)
[2024-01-10] MEDS: iopamidoL 15 ML VIAL 3 ML INJ (10:51)
[2024-01-10] MEDS: BUPIVACAINE 0.25% (PF) VIAL 2 ML INJ (10:51)
[2024-01-10 10:55] VITALS: BP 126/80; PULSE 63; RESP 15; O2SAT 100
[2024-01-10 11:15] VITALS: BP 129/82; PULSE 74; RESP 14; O2SAT 99
--- NOTE | 2024-01-10 12:19 | P.PCN_ITS ---
Date/Time/Diagnoses Date of procedure: 01/10/24 Time of procedure: 12:20 Pre-procedure diagnosis: 1. HNP WITH RADICULAR FEATURES, 2. MULTILEVEL CENTRAL STENOSIS, Post-procedure diagnosis: same Procedure Notes Procedure: 1. FLUOROSCOPICALLY GUIDED CONTRAST CONTROLLED INTERLAMINAR EPIDURAL STEROID INJECTION -L4/5 Indications: Nura is referred by Dr. Mcclelland for treatment of Bilateral Foraminal Stenosis R>L LE symptoms. Physician: Luis Bradley Total Fluoroscopy time (seconds): 6 Total sedation minutes: 10 Complications: none Procedure in detail & Post-procedure care: FINDINGS Multilevel Central Spinal Stenosis with Nerve Root Compression DESCRIPTION OF PROCEDURE Fluoroscopically guided, contrast-controlled L4/5 translaminar epidural steroid injection. Following review of allergy and review of potential side effects and complications, including, but not necessarily limited to, infection, allergic reaction, local tissue breakdown, temporary as well as permanent nerve injury, paralysis, stroke and possible , the patient indicated that the patient understood and agreed to proceed. An informed consent document was signed by the patient, witnessed by a nurse, and placed in the patient's chart. Additionally, other treatment options including modalities, medications, and physical therapy were reviewed with the patient. After review of previous anaesthesic history and IV conscious sedation the patient was deemed safe to proceed with today?s procedure with IV conscious sedation as ASA class II designation. Safety time-out was performed to confirm patient ID, procedure to be performed and site of procedure. IV sedation was accomplished with a combination of 1mg of Versed was administered by the RN after DO order, titrated to patient comfort during the course of the procedure while the patient remained responsive to all verbal commands In the prone position, following sterile prep and drape of the lumbar region, the L4/5 translaminar space was identified fluoroscopically. The skin was anesthetized via a 25-gauge, 1.5inch needle with 1% lidocaine solution. At this point, a 22-gauge short bevel spinal needle was atraumatically introduced and advanced under fluoroscopic guidance into the region of the L4/5 translaminar space. Depth was confirmed on lateral view. Radiological data, including multiple fluoroscopic views of the lumbar spine, reveal a spinal needle at the L4/5 translaminar space. Lateral views then show placement of the needle in the epidural space. Subsequent views show contrast material flowing superiorly and inferiorly in the epidural space. No vascular or intrathecal uptake is observed. At this point, using loss of resistance technique with saline and air, the epidural space was entered. This was confirmed following negative aspiration with injection of approximately 1.5cc of Isovue 200, showing excellent epidural flow without vascular or intrathecal uptake. At this point, 1cc of 1% lidocaine solution combined with 2cc or 10mg of dexamethasone and 6mg betamethasone was injected without incident. The patient tolerated the procedure well without signs or symptoms of complications prior to transfer to the recovery area continued monitoring without incident. The patient was then transferred to the recovery area where they were observed for an appropriate period of time after the injection. The patient reported a VAS score of 6 prior to the procedure and a post- procedure VAS of 0. POST OP INSTRUCTIONS The patient was provided a Pain Log to continue to record their response to the target-specific procedure prior to follow-up visit with their referring physician. Additionally, specific post-injection care instructions and a contact number to our office were provided if concerns arise regarding possible complications associated with the procedure are suspected.
== END 2024-01-10 11:20 | disposition home or self-care (01) ==
LOC: RAD 09:47
PROVIDERS: Family Provider Internal Medicine; PCP Internal Medicine; Referring Provider Physical Medicine & Rehabilitation; Visit Provider Physical Medicine & Rehabilitation
DX: M51.16 Intervertebral disc disorders with radiculopathy, lumbar region (principal); M48.061 Spinal stenosis, lumbar region without neurogenic claudication
CPT/HCPCS: 62323; 99152; J0702; J1100; J2250; J3490

== ENCOUNTER 2024-05-22 14:38 | Outpatient (CLI) | payer MEDICARE, SELFPAY ==
[2024-05-22] VITALS (9 sets, daily range): BP systolic 134–148; BP diastolic 78–94; PULSE 16–76; RESP 11–78; TEMP 36.6; O2SAT 96–100
--- NOTE | 2024-05-22 15:15 | DI.RAD.S_ITS ---
PROCEDURE: PAIN L/S TRANSFORAMINAL INJECT INDICATIONS: Left L4-5 and L5-S1 transforaminal KIYA COMPARISON: None. FINDINGS: Fluoroscopic spot filming was performed to verify placement of spinal needles at the left L4-5 and L5-S1 level(s), as labeled on the films. Appropriate location(s) of the needle tip(s) was confirmed by injection of iodinated contrast. IMPRESSION: Fluoroscopy for left L4-5 and L5-S1 transforaminal steroid injection. Dictated by: Carlene Loera M.D. on 05/22/2024 at 22:22 Approved by: Carlene Loera M.D. on 05/22/2024 at 22:22
[2024-05-22] MEDS: MIDAZOLAM 2 MG/2 ML VIAL IV (15:41)
[2024-05-22] MEDS: iopamidoL 15 ML VIAL 3 ML INJ (15:47)
[2024-05-22] MEDS: BETAMETHASONE 30 MG/5 ML MDV 12 MG INJ (15:48)
[2024-05-22] MEDS: DEXAMETHASONE 10 MG/ML VIAL 20 MG INJ (15:48)
[2024-05-22] MEDS: BUPIVACAINE 0.25% (PF) VIAL 2 ML INJ (15:49)
--- NOTE | 2024-05-22 16:07 | P.PCN_ITS ---
Date/Time/Diagnoses Date of procedure: 05/22/24 Time of procedure: 16:07 Pre-procedure diagnosis: 1. FORAMINAL STENOSIS WITH LE SYMPTOMS Post-procedure diagnosis: same Procedure Notes Procedure: 1. FLUOROSCOPICALLY GUIDED CONTRAST CONTROLLED TRANSFORAMINAL EPIDURAL STEROID INJECTION - LEFT L4/5 Indications: Nura is referred by Dr. Mcclelland for treatment of Foraminal Stenosis with Left LE Symptoms Physician: Luis Bradley Total Fluoroscopy time (seconds): 16 Total sedation minutes: 22 Complications: none Procedure in detail & Post-procedure care: FINDINGS Foraminal Nerve Root Compression secondary to disc disease and facet hypertrophy DESCRIPTION OF PROCEDURE Following review of allergy and review of potential side effects and complications, including, but not necessarily limited to, infection, allergic reaction, local tissue breakdown, stroke, temporary or permanent nerve injury, paralysis, and possible , the patient indicated that the patient understood and agreed to proceed. An informed consent document was signed by the patient, witnessed by a nurse, and placed in the patient's chart. Additionally, other treatment options including medications, modalities, and physical therapy were reviewed with the patient. After review of previous anaesthesic history and IV conscious sedation the patient was deemed safe to proceed with today?s procedure with IV conscious sedation as ASA class II designation. Safety time-out was performed to confirm patient ID, procedure to be performed and site of procedure. IV sedation was accomplished with a combination of 2mg of Versed administered by the RN after DO order, titrated to patient comfort during the course of the procedure while the patient remained responsive to all verbal commands In the prone position following sterile prep and drape of the lumbar region, the left L4/5 posterior neuroforamen was identified fluoroscopically. The skin was anesthetized via a 25-gauge 1.5-inch needle with 1% lidocaine solution. At this point, a 25-gauge 3.5-inch spinal needle was atraumatically introduced and advanced under fluoroscopic guidance through the posterior left L4/5 neuroforamen to approximately the anterior aspect of the canal. Depth was confirmed on lateral view. Following negative aspiration, injection of approximately 1.5 cc of Isovue 200 under live fluoroscopy in the AP view confirmed excellent flow along the nerve root, into the epidural space without vascular or intrathecal uptake observed Radiological data, including multiple fluoroscopic views of the lumbosacral spine, reveal a spinal needle at the left L4/5 posterior neuroforamen. Subsequent views show flow of contrast material flowing superiorly and inferiorly along the nerve root confirming epidural flow. Subsequently, a test dose of 1.5 cc of 1% lidocaine solution was administered and patient was observed for two minutes for signs or symptoms of complications, including abdominal pain, shortness of breath, bilateral upper or lower extremity weakness, nausea and vomiting, prior to steroid injection. At this point, a total of 2cc or 10mg of dexamethasone and 6mg of betamethasone was injected without incident. The procedure tolerated the procedure well without signs or symptoms of complications prior to transfer to the recovery area continued monitoring without incident. The patient was then transferred to the recovery area where they were observed for an appropriate time after the injection. The patient reported a VAS score of 7 prior to the procedure and a post- procedure VAS of 0. POST OP INSTRUCTIONS The patient was provided a Pain Log to continue to record their response to the target-specific procedure prior to follow-up visit with their referring physician. Additionally, specific post-injection care instructions and a contact number to our office were provided if concerns arise regarding possible complications associated with the procedure are suspected.
--- NOTE | 2024-05-22 16:08 | P.PCN_ITS ---
Date/Time/Diagnoses Date of procedure: 05/22/24 Time of procedure: 16:08 Pre-procedure diagnosis: 1. FORAMINAL STENOSIS WITH LE SYMPTOMS Post-procedure diagnosis: same Procedure Notes Procedure: 1. FLUOROSCOPICALLY GUIDED CONTRAST CONTROLLED TRANSFORAMINAL EPIDURAL STEROID INJECTION - Left L5/S1 Indications: Nura is referred by Dr. Mcclelland for treatment of Foraminal Stenosis with Left LE Symptoms Physician: Luis Bradley Total Fluoroscopy time (seconds): 16 Total sedation minutes: 22 Complications: none Procedure in detail & Post-procedure care: FINDINGS Foraminal Nerve Root Compression secondary to disc disease and facet hypertrophy DESCRIPTION OF PROCEDURE Following review of allergy and review of potential side effects and complications, including, but not necessarily limited to, infection, allergic reaction, local tissue breakdown, stroke, temporary or permanent nerve injury, paralysis, and possible , the patient indicated that the patient understood and agreed to proceed. An informed consent document was signed by the patient, witnessed by a nurse, and placed in the patient's chart. Additionally, other treatment options including medications, modalities, and physical therapy were reviewed with the patient. After review of previous anaesthesic history and IV conscious sedation the patient was deemed safe to proceed with today?s procedure with IV conscious sedation as ASA class II designation. Safety time-out was performed to confirm patient ID, procedure to be performed and site of procedure. IV sedation was accomplished with a combination of 2mg of Versed was administered by the RN after DO order, titrated to patient comfort during the course of the procedure while the patient remained responsive to all verbal commands In the prone position following sterile prep and drape of the lumbar region, the Left L5/S1 posterior neuroforamen was identified fluoroscopically. The skin was anesthetized via a 25-gauge 1.5-inch needle with 1% lidocaine solution. At this point, a 25-gauge 3.5-inch spinal needle was atraumatically introduced and advanced under fluoroscopic guidance through the posterior Left L5/S1 neuroforamen to approximately the anterior aspect of the canal. Depth was confirmed on lateral view. Following negative aspiration, injection of approximately 1.5 cc of Isovue 200 under live fluoroscopy in the AP view confirmed excellent flow along the nerve root, into the epidural space without vascular or intrathecal uptake observed Radiological data, including multiple fluoroscopic views of the lumbosacral spine, reveal a spinal needle at the Left L5/S1 posterior neuroforamen. Subsequent views show flow of contrast material flowing superiorly and inferiorly along the nerve root confirming epidural flow. Subsequently, a test dose of 1.5 cc of 1% lidocaine solution was administered and patient was observed for two minutes for signs or symptoms of complications, including abdominal pain, shortness of breath, bilateral upper or lower extremity weakness, nausea and vomiting, prior to steroid injection. At this point, a total of 2cc or 10mg of dexamethasone and 6mg of betamethasone was injected without incident. The procedure tolerated the procedure well without signs or symptoms of complications prior to transfer to the recovery area continued monitoring without incident. The patient was then transferred to the recovery area where they were observed for an appropriate time after the injection. The patient reported a VAS score of 7 prior to the procedure and a post-procedure VAS of 0. POST OP INSTRUCTIONS The patient was provided a Pain Log to continue to record their response to the target-specific procedure prior to follow-up visit with their referring physici an. Additionally, specific post-injection care instructions and a contact number to our office were provided if concerns arise regarding possible complications associated with the procedure are suspected.
== END 2024-05-22 16:16 | disposition home or self-care (01) ==
LOC: RAD 14:39
PROVIDERS: Family Provider Internal Medicine; PCP Internal Medicine; Referring Provider Physical Medicine & Rehabilitation; Visit Provider Physical Medicine & Rehabilitation
DX: M48.061 Spinal stenosis, lumbar region without neurogenic claudication (principal); M48.07 Spinal stenosis, lumbosacral region; M51.16 Intervertebral disc disorders with radiculopathy, lumbar region; M51.17 Intervertebral disc disorders with radiculopathy, lumbosacral region; M47.26 Other spondylosis with radiculopathy, lumbar region; M47.27 Other spondylosis with radiculopathy, lumbosacral region
CPT/HCPCS: 64483; 64484; 99152; J0702; J1100; J2250; J3490

== ENCOUNTER → 2024-06-14 07:11 | Outpatient (CLI) | payer MEDICARE, SELFPAY ==
--- NOTE | 2024-06-14 07:12 | DI.MRI.S_ITS ---
PROCEDURE: MR LUMBAR SPINE WO CON INDICATIONS: spinal stenosis TECHNIQUE: Noncontrast sagittal T1 spin echo and T2 fast echo, sagittal STIR, and T2 fast spin echo through the lumbar spine. In cases with scoliosis, additional coronal T2 fast spin echo may be performed. COMPARISON: None. FINDINGS: Image quality: Excellent. Alignment and Curvature: There is mild, approximately 3 millimeters of L4-L5 anterolisthesis secondary to facet hypertrophy. Bone Marrow: Mixed Modic type 1-2 reactive endplate changes noted adjacent to the L5-S1 disc. No acute vertebral body compression fractures. Spinal Cord: Conus medullaris terminates at the L1 level. Visualized cord demonstrates normal signal and size. Paraspinous Soft Tissues: No paravertebral masses. T12-L1: Normal appearance. L1-L2: Loss of disc signal and mild loss of disc height. Moderate, diffuse disc bulge. Mild narrowing of the central canal. Mild bilateral neural foraminal narrowing. No neural compression. L2-L3: Loss of disc signal. Moderate, diffuse disc bulge. Small central/right central disc protrusion. Mild narrowing of the central canal. Mild bilateral neural foraminal narrowing. No neural compression. L3-L4: Loss of disc signal. Mild, diffuse disc bulge. Mild bilateral facet hypertrophy. Mild narrowing of the central canal. Mild bilateral neural foraminal narrowing. No neural compression. Fissure in the anterior annulus. L4-L5: Loss of disc signal. Mild to moderate diffuse disc bulge. Moderate facet and severe ligamentum flavum hypertrophy. Severe narrowing of the central canal with compression of the nerve roots of the cauda equina. Mild to moderate bilateral neural foraminal narrowing. L5-S1: Loss of disc signal and height. Mild, diffuse disc bulge. Mild bilateral facet hypertrophy. No central stenosis. Severe right and mild left neural foraminal narrowing with compression of the exiting right L5 nerve root. IMPRESSION: Grade 1 L4-L5 degenerative spondylolisthesis. Multilevel degenerative disc disease. Multilevel facet arthropathy. Severe L4-L5 central canal stenosis with compression of the nerve roots of the cauda equina. Severe right L5-S1 neural foraminal narrowing with compression of the exiting right L5 nerve root. Dictated by: Jayshree Hilton MD, PhD on 06/14/2024 at 9:17 Approved by: Jayshree Hilton MD, PhD on 06/14/2024 at 9:26
== END ==
PROVIDERS: Family Provider Internal Medicine; PCP Internal Medicine; Referring Provider Physical Medicine & Rehabilitation; Visit Provider Physical Medicine & Rehabilitation
DX: M43.16 Spondylolisthesis, lumbar region (principal); M51.16 Intervertebral disc disorders with radiculopathy, lumbar region; M51.17 Intervertebral disc disorders with radiculopathy, lumbosacral region; M47.26 Other spondylosis with radiculopathy, lumbar region; M47.27 Other spondylosis with radiculopathy, lumbosacral region; M48.061 Spinal stenosis, lumbar region without neurogenic claudication; M48.07 Spinal stenosis, lumbosacral region
CPT/HCPCS: 72148

== ENCOUNTER → 2024-06-27 07:07 | Outpatient (CLI) | payer MEDICARE, SELFPAY ==
[2024-06-27 09:27] LABS: Alanine Aminotransferase 32 IU/L (<50); Albumin 4.4 g/dL (3.5-5.0); Albumin Globulin Ratio 1.9 (1.0-2.8); Alkaline Phosphatase 44 U/L (38-126); Aspartate Aminotransferase 31 IU/L (17-59); BUN Creatinine Ratio 17.4 (6-22); Bilirubin Total 0.8 mg/dL (0.2-1.3); Blood Urea Nitrogen 19 mg/dL (9-20); Calcium 9.5 mg/dL (8.4-10.2); Carbon Dioxide 27 mmol/L (22-32); Chloride 104 mmol/L (98-107); Cholesterol 172 mg/dL (140-199); Estimated Glomerular Filt Rate > 60 mL/min (>60); Globulin 2.3 g/dL (1.7-4.1); Glucose 92 mg/dL (80-110); HDL Cholesterol 79 mg/dL (40-60); HEMOLYSIS < 15 (0-50); LDL Cholesterol Calculated 78 mg/dL (<100); Potassium 4.6 mmol/L (3.4-5.1); Sodium 138 mmol/L (137-145); Total Protein 6.7 g/dL (6.3-8.2); Triglycerides 75 mg/dL (35-150)
== END ==
PROVIDERS: Family Provider Internal Medicine; PCP Internal Medicine; Referring Provider Internal Medicine Cardiovascular Disease; Visit Provider Internal Medicine Cardiovascular Disease
DX: E78.00 Pure hypercholesterolemia, unspecified (principal)
CPT/HCPCS: 36415; 80053; 80061

== ENCOUNTER → 2024-08-20 13:38 | Outpatient (CLI) | payer MEDICARE, SELFPAY ==
[2024-08-20 15:57] LABS: Prostate Specific Antigen 2.27 ng/mL (0.10-4.00)
== END ==
PROVIDERS: Family Provider Internal Medicine; PCP Internal Medicine; Referring Provider Internal Medicine; Visit Provider Internal Medicine
DX: N40.1 Benign prostatic hyperplasia with lower urinary tract symptoms (principal); N13.8 Other obstructive and reflux uropathy
CPT/HCPCS: 36415; 84153

== ENCOUNTER → 2024-09-25 12:38 | Outpatient (CLI) | payer MEDICARE, SELFPAY ==
--- NOTE | 2024-09-25 12:39 | DI.CT.S_ITS ---
PROCEDURE: CT LUMBAR SPINE WO CON INDICATIONS: LUMBAR SPONDYLOLISTHESIS - robo spine TECHNIQUE: Noncontrast 0.8 mm thick sections acquired from the T12 level to the sacrum. Sagittal and coronal reformats were constructed. For radiation dose reduction, the following was used: automated exposure control. COMPARISON: [facility], CR, XR T AND L SPINE 4 TO 5 VIEWS, 09/25/2024, 12:58. [facility], CT, CT THORACIC SPINE WO CON, 09/25/2024, 12:56. [facility], MR, MR LUMBAR SPINE WO CON, 06/14/2024, 7:34. FINDINGS: Image quality: Excellent. Bones: No acute vertebral body compression fractures. No suspicious lytic or blastic bony lesions. No pars defects. Mild grade 1 anterolisthesis is seen at the L4-L5 level. T12-L1: Unremarkable. L1-L2: Szrl-yt-agmctadx loss of disc height is seen. Moderate generalized disc bulge is seen. There is moderate left-sided and nvhv-ra-xivnyxve right-sided neural foraminal narrowing. Mild central canal narrowing is seen. L2-L3: The disc height is well preserved. Moderate disc bulge is seen, with a central disc protrusion. Moderate bilateral neural foraminal narrowing is seen. Moderate central canal narrowing is seen. L3-L4: The disc height is well preserved. Moderate disc bulge is seen, which is eccentric to the right. Mild facet hypertrophy is seen. Moderate bilateral neural foraminal narrowing is seen. Mac row moderate sent L4-L5: The disc height is relatively well preserved. Moderate disc bulge is seen, with a central disc protrusion. Moderate facet joint hypertrophy is seen. There is at least moderate bilateral neural foraminal narrowing seen. Moderate to severe central canal narrowing is seen, as on series 4 image 54. L5-S1: Moderate to severe loss of disc height is seen. Vacuum disc phenomenon is seen at this level. Endplate irregularity and sclerosis can be seen. Moderate generalized disc bulge is seen. There is a central disc osteophyte protrusion. Moderate facet joint hypertrophy is seen. There is at least moderate left-sided and moderate to severe right-sided neural foraminal narrowing. No significant central canal narrowing is seen. Soft tissues: No retroperitoneal masses or hematomas. Visualized aorta is normal in caliber. Colonic diverticulosis is seen, without findings of active diverticulitis. IMPRESSION: Study performed for operative localization. Multiple levels of lumbar spine degenerative change can be seen, which are worst inferiorly. Dictated by: Rene Taylor M.D. on 09/25/2024 at 15:43 Approved by: Rene Taylor M.D. on 09/25/2024 at 15:46
--- NOTE | 2024-09-25 12:39 | DI.CT.S_ITS ---
PROCEDURE: CT THORACIC SPINE WO CON INDICATIONS: LUMBAR SPONDYLOLISTHESIS - robo spine TECHNIQUE: Noncontrast 0.8 mm thick sections acquired through the region of interest in the thoracic spine. Sagittal and coronal reformats were then constructed. For radiation dose reduction, the following was used: automated exposure control. COMPARISON: [facility], CR, XR T AND L SPINE 4 TO 5 VIEWS, 09/25/2024, 12:58. [facility], CT, CT LUMBAR SPINE WO CON, 09/25/2024, 12:56. FINDINGS: Image quality: Excellent. Bones: There is normal overall bony alignment. No acute vertebral body compression fractures. No suspicious sclerotic or lytic bony lesions. Central spinal canal is of normal overall caliber. Lower cervical spine degenerative change is partially seen. Within the thoracic spine, generalized degenerative changes are seen, including at least moderate disc space narrowing at T5-T6 and T6-T7. No significant central canal narrowing is seen. A few levels of urqz-ge-yhikmmja neural foraminal narrowing can be seen within the mid to lower thoracic spine. Soft tissues: No paravertebral masses or hematomas. Visualized posteromedial lungs appear clear. IMPRESSION: Scattered thoracic spine degenerative changes are seen, including moderate to severe disc space narrowing at T5-T6 and T6-T7. CT performed for intraoperative localization. Dictated by: Rene Taylor M.D. on 09/25/2024 at 16:25 Approved by: Rene Taylor M.D. on 09/25/2024 at 16:27
--- NOTE | 2024-09-25 12:43 | DI.RAD.S_ITS ---
PROCEDURE: XR T AND L SPINE 4 TO 5 VIEWS INDICATIONS: LUMBAR SPONDYLOLISTHESIS TECHNIQUE: 6 views acquired of the thoracolumbar spine. COMPARISON: None. FINDINGS: Bones: No acute fractures or dislocations. There is no evidence of significant scoliosis. Grade 1 anterolisthesis of L4 on L5 is noted and there is minimal grade 1 retrolisthesis of L5 on S1 with corresponding severe intervening disc space loss. Visualized inferior ribs appear intact. No suspicious bony lesions. Soft tissues: No suspicious soft tissue calcifications. IMPRESSION: Grade 1 anterolisthesis of L4 on L5 with minimal grade 1 retrolisthesis of L5 on S1. No evidence of acute osseous abnormality. Dictated by: Carlos Valadez M.D. on 09/25/2024 at 22:31 Approved by: Carlos Valadez M.D. on 09/25/2024 at 22:34
== END ==
PROVIDERS: Family Provider Internal Medicine; PCP Internal Medicine; Referring Provider Neurological Surgery; Visit Provider Neurological Surgery
DX: M43.16 Spondylolisthesis, lumbar region (principal); M41.9 Scoliosis, unspecified; M47.816 Spondylosis without myelopathy or radiculopathy, lumbar region; M47.817 Spondylosis without myelopathy or radiculopathy, lumbosacral region; M48.04 Spinal stenosis, thoracic region; M47.814 Spondylosis without myelopathy or radiculopathy, thoracic region
CPT/HCPCS: 72083; 72128; 72131

== ENCOUNTER → 2024-10-26 10:06 | Outpatient (CLI) | payer MEDICARE, SELFPAY ==
--- NOTE | 2024-10-26 10:08 | DI.RAD.S_ITS ---
PROCEDURE: XR LUMBAR SPINE 2-3V INDICATIONS: SPONDYLOLISTHESIS TECHNIQUE: 3 views of the lumbar spine were acquired. COMPARISON: [facility], CR, XR T AND L SPINE 4 TO 5 VIEWS, 09/25/2024, 12:58. FINDINGS: Bones: L4-S1 PLIF postsurgical changes. Orthopedic hardware is in expected position and is intact. 5 dih-pvu-dgcoytn vertebrae are present. There is normal bony alignment. No vertebral body compression fractures. No suspicious bony lesions. Moderate L1-L2 degenerative disc disease. Soft tissues: Overlying bowel gas pattern is normal. No suspicious soft tissue calcifications. IMPRESSION: Expected postsurgical change for L4-S1 PLIF. Dictated by: Jayshree Hilton MD, PhD on 10/26/2024 at 12:21 Approved by: Jayshree Hilton MD, PhD on 10/26/2024 at 12:22
== END ==
PROVIDERS: Family Provider Internal Medicine; PCP Internal Medicine; Referring Provider Neurological Surgery; Visit Provider Neurological Surgery
DX: M43.16 Spondylolisthesis, lumbar region (principal); M47.27 Other spondylosis with radiculopathy, lumbosacral region; M51.16 Intervertebral disc disorders with radiculopathy, lumbar region; Z98.1 Arthrodesis status
CPT/HCPCS: 72100

== ENCOUNTER → 2024-12-06 10:22 | Outpatient (CLI) | payer MEDICARE, SELFPAY ==
--- NOTE | 2024-12-06 10:26 | DI.RAD.S_ITS ---
PROCEDURE: XR LUMBAR SPINE 1V INDICATIONS: POST OP XRAY TECHNIQUE: 3 views of the lumbar spine were acquired. COMPARISON: [facility], CR, XR LUMBAR SPINE 2-3V, 10/26/2024, 10:05. [facility], CR, XR LUMBAR SPINE MIN 4V, 11/24/2023, 10:18. FINDINGS: Bones: 5 slx-xva-dqlupkq vertebrae are present. There is normal bony alignment. No vertebral body compression fractures. No suspicious bony lesions. Posterior and interbody surgical fusion of L4 through S1. No hardware complication. Stable mild disc height loss at L1-2, L2-3, L3-4. Soft tissues: Overlying bowel gas pattern is normal. No suspicious soft tissue calcifications. IMPRESSION: Posterior and interbody surgical fusion of L4 through S1, without hardware complication. Dictated by: Fausto Ceron M.D. on 12/06/2024 at 17:10 Approved by: Fausto Ceron M.D. on 12/06/2024 at 17:11
== END ==
PROVIDERS: Family Provider Internal Medicine; PCP Internal Medicine; Referring Provider Internal Medicine; Visit Provider Internal Medicine
DX: M43.16 Spondylolisthesis, lumbar region (principal); Z98.1 Arthrodesis status
CPT/HCPCS: 72020